=== PATIENT | female | born 1935 | race Caucasian/White ===

== ENCOUNTER 2023-07-25 04:10 | Emergency (ER) | payer MEDICARE ==
[~2023-07-25] VITALS: Ht 165.1 cm; Wt 65.8 kg
[2023-07-25 11:19] VITALS: BP 137/65; TEMP 98.4; O2SAT 97
== END 2023-07-25 11:19 | disposition home or self-care (01) ==
LOC: ER 04:12
DX: Z00.00 Encounter for general adult medical examination without abnormal findings (principal)